=== PATIENT | female | born 1940 | race Caucasian/White ===

== ENCOUNTER 2020-09-03 13:07 | Inpatient (IN) ==
[2020-09-03] MEDS ORDERED: ALBUTEROL SULFATE 2.5 MG/0.5 ML VIAL.NEB IH ONE (13:17)
[2020-09-03] MEDS ORDERED: METHYLPREDNISOLONE SOD SUCC/PF 40 MG/ML VIAL IV ONE (13:18)
--- NOTE | 2020-09-03 13:27 | ERNOTE ---
Dyspnea - General Presenting Symptoms: shortness of breath Time Seen by Provider: 09/03/20 13:10 Source: patient Exam Limitations: no limitations - Immun/Allergies/Home Medications Immunizations: IMMUNIZATION HX History of Influenza Vaccine Yes Hx Pneumococcal Vaccination Yes Allergies/Adverse Reactions: Allergies cephalexin Adverse Reaction (Unknown, Verified 09/03/20 13:26) lorazepam [From Ativan] Adverse Reaction (Verified 09/03/20 13:26) makes her feel weird mirtazapine [From Remeron] Adverse Reaction (Verified 09/03/20 13:26) severe drowsiness Home Medications: HOME MEDICATIONS Aspirin [Aspirin Chewable] 81 mg PO DAILY 11/09/14 [Last Taken Unknown] Multivitamin [Multivitamins] 1 ea PO DAILY 11/24/17 [Last Taken Unknown] cholecalciferol (vitamin D3) 25 mcg (1,000 unit) tablet 1,000 unit PO DAILY #30 tab 01/14/18 [Last Taken Unknown] budesonide-formoterol HFA 160 mcg-4.5 mcg/actuation aerosol inhaler 2 puff IH BID 09/05/18 [Last Taken Unknown] arformoterol 15 mcg/2 mL solution for nebulization 2 ml IH BID 08/28/20 [Last Taken Unknown] levothyroxine 75 mcg tablet 75 mcg PO DAILY #30 tab 08/30/20 [Last Taken Unknown] Clopidogrel Bisulfate [Plavix] 75 mg PO DAILY 09/03/20 [Last Taken Unknown] Lisinopril [Zestril] 40 mg PO DAILY 09/03/20 [Last Taken Unknown] Metoprolol Succinate 100 mg PO DAILY 09/03/20 [Last Taken Unknown] PARoxetine HCL [Paxil] 10 mg PO DAILY 09/03/20 [Last Taken Unknown] amLODIPine BESYLATE [Norvasc] 5 mg PO DAILY 09/03/20 [Last Taken Unknown] levofloxacin 500 mg tablet 500 mg PO DAILY 5 Days #5 tab 09/03/20 [Last Taken Unknown] - History of Present Illness Narrative: Patient is coming to the ER for shortness of breath. She states that she has a history of COPD, uses 3 L of oxygen at night. Her symptoms got significantly worse from baseline last night. She states that it was shortly after she took an antibiotic that Dr. Otoole had prescribed for her for a UTI (first dose last night at 19:00) She denies any coughing, denies any fever. She tried her inhaler this morning without any significant relief. She has had her first COVID immunization last week. Date (Duration): 09/02/20 Treatment YARD HOSTLER: by patient, albuterol Initiating event: Denies: upper resp illness, out of meds Frequency of episodes: Reports: occassional episodes Modifying Factors - (Improves): Reports: oxygen Modifying Factors (Worsens): Reports: activity Associated Symptoms-Dyspnea: Denies: fever/chills, chest pain/discomfort, cough Prior Treatment: Reports: recently seen, currently on antibiotics Review of Systems - Review of Systems Constitutional: Present: malaise. Absent: fever ENT: Absent: nose congestion, sore throat Respiratory: Present: shortness of breath. Absent: cough Cardiology: Absent: chest pain Gastrointestinal/Abdominal: Absent: nausea, abdominal pain Genitourinary: Present: no symptoms reported Neurological: Absent: headache Medical History (Last Reviewed 09/03/20 @ 13:23 by Brenda Tarango MD) COPD (chronic obstructive pulmonary disease) Onset Date: Unknown Graves disease Onset Date: Unknown History of temporal arteritis Onset Date: ~2003 Hypertension Onset Date: Unknown Hypothyroidism (acquired) Onset Date: Unknown Leukemia Onset Date: ~2000 chronic lymphocytic Peripheral vascular disease Onset Date: Unknown History of kidney cancer Onset Date: ~2014 History of left breast cancer Onset Date: ~2009 left breast History of renal cell cancer Onset Date: ~2015 Tibial artery stenosis Onset Date: ~2015 Surgical History: Surgical History (Last Reviewed 09/03/20 @ 13:23 by Brenda Tarango MD) Cataract Onset Date: 11/22/07 09/27/2007 left Femoral-tibial bypass graft occlusion, right Onset Date: ~2015 bypass graft, femoral-posterior tibial, in-situ vein History of breast biopsy Onset Date: 08/18/17 left 08/18/2017, right History of colonoscopy Onset Date: 09/14/142012 Elle Contreras extremely tortuosity of sigmoid colon, diverticulosis left colon History of endarterectomy Onset Date: ~2016 iliofemoral endarterectomy rt lower extremity History of esophagogastroduodenoscopy Onset Date: 09/14/14 History of hysterectomy Onset Date: ~1983 abdominal History of nephroureterectomy Onset Date: ~2014 History of oophorectomy Onset Date: ~1983 History of vascular surgery Onset Date: ~2009 Dr Rosen-YARD HOSTLER of left superficial femoral artery and stenting of proximal left superficial femoral artery 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 Family History: Family History (Last Reviewed 09/03/20 @ 13:26 by Aparna Schultz, RN) Father CAD (coronary artery disease) Mother Cancer Social History: (Last Reviewed 09/03/20 @ 13:26 by Aparna Schultz RN) Social History: Marital status: / Service: No Tobacco: Smoking Status: Former smoker Alcohol: alcohol intake: current alcohol intake frequency: a few times a month Substance Use: substance use type: does not use Dietary Habits: caffeine: Yes Physical Exam - Physical Exam General Appearance: Present: wd/wn, alert, mild distress, anxious Eye Exam: Normal inspection: bilateral Ears, Nose, Throat: Present: normal pharynx, dry mucous membranes Respiratory: Present: respiratory distress, decreased breath sounds, expiration (prolonged), wheezing, other - patient speaks in three word sentences Cardiovascular/Chest: Present: no murmur, tachycardia, JVD Gastrointestinal/Abdominal: Present: nontender, nondistended, soft Extremity Exam: Present: no edema Neurological Exam: Present: alert, oriented, normal mood/affect Skin Exam: Present: normal color, warm/dry Progress - Results and Orders Patient's Lab Results:: I have reviewed the patient's lab results. - Vital Signs Patient's Vital Signs:: I have reviewed the patient's vital signs. - EKG EKG #1 EKG: NSR - sinustachycardia, nonspecific ST T wave changes, other - atrial enlargement EKG read: Interp. by me - X-Ray X-Ray #1 X-Ray: chest - hyperinflated lungs, no acute findings Interpretation: Reviewed by me - Progress/Reassessment Progress Note-Subjective: 09/03/20 14:46 patient a little calmer, improved air movement and less wheezing patient has elevated BNP, no history of CHF, will try low dose of lasix talked about possible admission, patient would prefer to go home 09/03/20 15:23 patient states that her breathing is better, has to urinate now (25minutes after lasix 20mg IV) patient makes it to bedside commode with minimal help 09/03/20 15:31 with the exertion of moving to the commode patient get very short of breath, RR up to 40's, O2 sat down to mid 80's 09/03/20 15:42 discussed with keyla Marroquin to admit for observation for COPD exacerbation switch to rocephin as urine culture is sensitive and better side effect profile for patient will also get COVId, LA and procalcitonin 09/03/20 16:40 patient has a fever now, will treat with tylenol cephalexin listed as allergy, patient states that it made her nauseated, no hives or shortness of breath, will start rocephin Departure Clinical Impression: COPD exacerbation, E. coli UTI (urinary tract infection) - Departure Disposition: Still a patient Condition: Stable
[2020-09-03 13:58] LABS: Hematocrit 36.3 % (37.0-47.0); Hemoglobin 11.6 gm/dL (12.5-16.0); Mean Cell Volume 93.3 fl (78-100); Mean Corpuscular Hemoglobin 29.8 pg (27-31); Mean Platelet Volume 9.7 fl (8-12.5); Platelet Count 186 K/mm3 (150-450); Red Blood Count 3.89 M/mm3 (4.2-5.4); White Blood Count 20.6 K/mm3 (4.0-10.5)
[2020-09-03 14:00] LABS: Total Cells Counted 100
[2020-09-03 14:17] LABS: Band 17 % (0-2.0); Lymphocyte 11 % (20-51); Monocyte 2 % (0-9); Neutrophil 70 % (42-75); Neutrophil # 14.4 K/mm3 (1.3-6.0)
[2020-09-03 14:18] LABS: ALT 20 U/L (19-67); AST 25 U/L (0-48); Albumin * 3.4 gm/dl (3.4-5.0); Alkaline Phosphatase * 84 U/L (50-170); Anion Gap 9.8 mmol/L (6.8-13.8); BNP * 13010 pg/mL (5-550); BUN/Creatinine Ratio 24.3 (9.0-21.6); Bilirubin, Total 0.6 mg/dL (0.0-1.1); Blood Urea Nitrogen 26 mg/dL (3-23); Ca. Corrected For Albumin 9.3 mg/dL (8.4-10.2); Calcium * 9.1 mg/dL (7.9-10.9); Chloride 98 mmol/L (97-106); Glucose * 111 mg/dL (70-110); Potassium 3.8 mmol/L (3.4-4.6); Sodium 134 mmol/L (132-142); Total Protein 7.4 gm/dL (6.2-8.2); Troponin I Less than 0.017 ng/mL (0.00-0.10)
[2020-09-03 14:19] LABS: Platelet Estimate Normal (NORMAL); RBC Morphology Normal (NORMAL)
[2020-09-03] MEDS ORDERED: FUROSEMIDE 10 MG/ML VIAL IV ONE (14:45)
[2020-09-03] MEDS ORDERED: cefTRIAXone SODIUM 1,000 MG/100 ML BAG IV ONE (16:40)
[2020-09-03] MEDS ORDERED: ACETAMINOPHEN 325 MG TABLET PO ONE (16:40)
--- NOTE | 2020-09-03 18:28 | HP ---
Chief Complaint - Chief Complaint Date of Service: 09/03/20 Time of Service: 16:30 Chief Complaint: shortness of breath History of Present Illness: Patient with PMHx of COPD requiring oxygen at night, HTN, hx of breast and renal cancer developed SOB last evening. She had just taken her 1st dose of levaquin for a UTI. Her SOB did not improve with her home oxygen or breathing treatments. She has not required hospitalization for COPD before. In the ED, her oxygen level was decreased to the 70s, RR in the 30s, HR in the low 100s. She had difficulty ambulating to the commode, becoming very dyspneic. BNP elevated to 13,000 without signs of fluid overload, WBC elevated to 20, procalcitonin elevated to 17. CXR was clear, troponin negative, normal lactate., negative COVID. She did not appear septic on exam, so she was not given a fluid bolus. She was given a dose of Rocephin for her UTI, 80 mg solumedrol, 20 mg IV lasix and a breathing treatment, and reported an improvement in her SOB for my admission exam. She is admitted for COPD exacerbation. 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 Peripheral vascular disease Onset Date: Unknown History of kidney cancer Onset Date: ~2014 History of left breast cancer Onset Date: ~2009 left breast History of renal cell cancer Onset Date: ~2015 Tibial artery stenosis Onset Date: ~2015 Surgical History: Surgical History (Last Reviewed 09/03/20 @ 17:26 by Filemon Loza RN) Cataract Onset Date: 11/22/07 09/27/2007 left Femoral-tibial bypass graft occlusion, right Onset Date: ~2015 bypass graft, femoral-posterior tibial, in-situ vein History of breast biopsy Onset Date: 08/18/17 left 08/18/2017, right 1979's History of colonoscopy Onset Date: 09/14/142012 Elle Contreras extremely tortuosity of sigmoid colon, diverticulosis left colon History of endarterectomy Onset Date: ~2016 iliofemoral endarterectomy rt lower extremity History of esophagogastroduodenoscopy Onset Date: 09/14/14 History of hysterectomy Onset Date: ~1983 abdominal History of nephroureterectomy Onset Date: ~2014 History of oophorectomy Onset Date: ~1983 History of vascular surgery Onset Date: ~2009 Dr Rosen-VIROLOGIST of left superficial femoral artery and stenting of proximal left superficial femoral artery 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 Family History: Family History (Last Reviewed 09/03/20 @ 17:26 by Filemon Loza RN) Father CAD (coronary artery disease) Mother Cancer Social History: (Last Reviewed 09/03/20 @ 17:26 by Filemon Loza RN) Social History: Marital status: / Service: No Tobacco: Smoking Status: Former smoker Alcohol: alcohol intake: current alcohol intake frequency: a few times a month Substance Use: substance use type: does not use Dietary Habits: caffeine: Yes Review Of Systems (GEN) - Review of Systems Generalized/Overall Review: Present: Weakness, Weight loss Respiratory: Present: Shortness of Breath Genitourinary: Present: Frequency Immunizations: IMMUNIZATION HX Immunizations Up to Date Yes History of Influenza Vaccine Yes Hx Pneumococcal Vaccination Yes Allergies/Adverse Reactions: Allergies Allergy/AdvReac Type Severity Reaction Status Date / Time cephalexin AdvReac Unknown Verified 09/03/20 17:26 lorazepam [From Ativan] AdvReac makes her Verified 09/03/20 17:26 feel weird mirtazapine [From Remeron] AdvReac severe Verified 09/03/20 17:26 drowsiness Home Medications: HOME MEDICATIONS Aspirin [Aspirin Chewable] 81 mg PO DAILY 11/09/14 [Last Taken Unknown] Multivitamin [Multivitamins] 1 ea PO DAILY 11/24/17 [Last Taken Unknown] cholecalciferol (vitamin D3) 25 mcg (1,000 unit) tablet 1,000 unit PO DAILY #30 tab 01/14/18 [Last Taken Unknown] budesonide-formoterol HFA 160 mcg-4.5 mcg/actuation aerosol inhaler 2 puff IH BID 09/05/18 [Last Taken Unknown] arformoterol 15 mcg/2 mL solution for nebulization 2 ml IH BID 08/28/20 [Last Taken Unknown] levothyroxine 75 mcg tablet 75 mcg PO DAILY #30 tab 08/30/20 [Last Taken Unknown] Clopidogrel Bisulfate [Plavix] 75 mg PO DAILY 09/03/20 [Last Taken Unknown] Lisinopril [Zestril] 40 mg PO DAILY 09/03/20 [Last Taken Unknown] Metoprolol Succinate 100 mg PO DAILY 09/03/20 [Last Taken Unknown] PARoxetine HCL [Paxil] 10 mg PO DAILY 09/03/20 [Last Taken Unknown] amLODIPine BESYLATE [Norvasc] 5 mg PO DAILY 09/03/20 [Last Taken Unknown] levofloxacin 500 mg tablet 500 mg PO DAILY 5 Days #5 tab 09/03/20 [Last Taken Unknown] Exam - Exam Vital Signs: Vital Signs - Last Taken Temp 36.9 C 09/03/20 18:14 Pulse 99 09/03/20 18:14 Resp 32 H 09/03/20 18:14 BP 148/70 09/03/20 18:14 Pulse Ox 100 09/03/20 18:14 Constitutional: Present: Alert, Cooperative, Mild distress, Thin and frail ENT Exam: Present: dry mucous membranes Respiratory: Present: lungs clear, accessory muscle use, No rales, No wheezing Cardiovascular/Chest: Present: tachycardia, other - no edema Abdomen: Present: soft, nontender Eye contact: Present: good eye contact Diagnostic Studies: Abnormal Lab Results 09/03/20 09/03/20 09/03/20 Range/Units 13:53 13:55 13:55 WBC 20.6 H (4.0-10.5) K/mm3 RBC 3.89 L (4.2-5.4) M/mm3 Hgb 11.6 L (12.5-16.0) gm/dL Hct 36.3 L (37.0-47.0) % RDW 15.0 H (11.5-14.0) % Band Neuts % (Manual) 17 H (0-2.0) % Lymphocytes % (Manual) 11 L (20-51) % Neutrophils # (Manual) 14.4 H (1.3-6.0) K/mm3 BUN 26 H (3-23) mg/dL Est GFR (Non-Af Amer) 52 L (60-130) mL/min BUN/Creatinine Ratio 24.3 H (9.0-21.6) Random Glucose 111 H (70-110) mg/dL B-Natriuretic Peptide 13946 H (5-550) pg/mL Procalcitonin 17.58 H (0.05-0.50) ng/mL Laboratory Results WBC 20.6 K/mm3 (4.0-10.5) H 09/03/20 13:55 RBC 3.89 M/mm3 (4.2-5.4) L 09/03/20 13:55 Hgb 11.6 gm/dL (12.5-16.0) L 09/03/20 13:55 Hct 36.3 % (37.0-47.0) L 09/03/20 13:55 MCV 93.3 fl (78-100) 09/03/20 13:55 MCH 29.8 pg (27-31) 09/03/20 13:55 MCHC 32.0 g/dl (32-36) 09/03/20 13:55 RDW 15.0 % (11.5-14.0) H 09/03/20 13:55 Plt Count 186 K/mm3 (150-450) 09/03/20 13:55 MPV 9.7 fl (8-12.5) 09/03/20 13:55 Neutrophils % (Manual) 70 % (42-75) 09/03/20 13:55 Band Neuts % (Manual) 17 % (0-2.0) H 09/03/20 13:55 Lymphocytes % (Manual) 11 % (20-51) L 09/03/20 13:55 Monocytes % (Manual) 2 % (0-9) 09/03/20 13:55 Neutrophils # (Manual) 14.4 K/mm3 (1.3-6.0) H 09/03/20 13:55 Lymphocytes # (Manual) 2.3 k/mm3 (1.5-3.5) 09/03/20 13:55 Monocytes # (Manual) 0.4 k/mm3 (0.0-1.0) 09/03/20 13:55 Toxic Vacuolation Trace 09/03/20 13:55 Platelet Estimate Normal (NORMAL) 09/03/20 13:55 RBC Morphology Normal (NORMAL) 09/03/20 13:55 Sodium 134 mmol/L (132-142) 09/03/20 13:55 Plasma Sodium 134 mmol/L (130-142) 09/03/20 13:55 Potassium 3.8 mmol/L (3.4-4.6) 09/03/20 13:55 Chloride 98 mmol/L (97-106) 09/03/20 13:55 Carbon Dioxide 30.0 mmol/L (24-32.6) 09/03/20 13:55 Anion Gap 9.8 mmol/L (6.8-13.8) 09/03/20 13:55 BUN 26 mg/dL (3-23) H 09/03/20 13:55 Creatinine 1.07 mg/dL (0.4-1.4) 09/03/20 13:55 Est GFR (Non-Af Amer) 52 mL/min (60-130) L 09/03/20 13:55 BUN/Creatinine Ratio 24.3 (9.0-21.6) H 09/03/20 13:55 Random Glucose 111 mg/dL (70-110) H 09/03/20 13:55 Lactic Acid, Venous 1.3 mmol/L (0.4-2.0) 09/03/20 13:53 Calcium 9.1 mg/dL (7.9-10.9) 09/03/20 13:55 Calcium Adj for Albumin 9.3 mg/dL (8.4-10.2) 09/03/20 13:55 Total Bilirubin 0.6 mg/dL (0.0-1.1) 09/03/20 13:55 AST 25 U/L (0-48) 09/03/20 13:55 ALT 20 U/L (19-67) 09/03/20 13:55 Alkaline Phosphatase 84 U/L (50-170) 09/03/20 13:55 Troponin I Less than 0.017 ng/mL (0.00-0.10) 09/03/20 13:55 B-Natriuretic Peptide 50192 pg/mL (5-550) H 09/03/20 13:55 Total Protein 7.4 gm/dL (6.2-8.2) 09/03/20 13:55 Albumin 3.4 gm/dl (3.4-5.0) 09/03/20 13:55 Procalcitonin 17.58 ng/mL (0.05-0.50) H 09/03/20 13:53 SARS-CoV-2 (PCR) Not detected (NotDetected) 09/03/20 15:45 Assessment/Plan - Narrative Narrative: She is improving with the interventions done in the ED - lasix, steroids, and Rocephin. The oxygen tubing was in place for thr nasal canula, but oxygen was not discontinued. She declines intubation. Will continue po steroids and transition to po cefuroxime for her UTI tomorrow. Continue home meds. Recheck labs in am. DC could be as soon as tomorrow. - Assessment/Plan (1) Respiratory distress, acute Problem: Acute (2) COPD exacerbation Problem: Acute (3) Dehydration Problem: Acute (4) Renal cancer Problem: Acute (5) Anemia Problem: Acute (6) Hypoxemia Problem: Acute
[2020-09-04] MEDS ORDERED: FOSFOMYCIN TROMETHAMINE 3 GM PACKET PO ONE (06:40)
[2020-09-04] MEDS ORDERED: FLUTICASONE PROPION/SALMETEROL 14 PUFF DISK.W.DEV IH PRN (06:48)
[2020-09-04 07:04] LABS: Hematocrit 31.6 % (37.0-47.0); Hemoglobin 10.1 gm/dL (12.5-16.0); Mean Cell Volume 92.7 fl (78-100); Mean Corpuscular Hemoglobin 29.6 pg (27-31); Mean Platelet Volume 9.9 fl (8-12.5); Platelet Count 191 K/mm3 (150-450); Red Blood Count 3.41 M/mm3 (4.2-5.4); Red Cell Distribution Width 15.1 % (11.5-14.0); White Blood Count 22.4 K/mm3 (4.0-10.5)
[2020-09-04 07:10] LABS: Total Cells Counted 100
[2020-09-04 07:21] LABS: Atypical (Reactive) Lymph 1 % (0-2); Band 10 % (0-2.0); Lymphocyte 11 % (20-51); Monocyte 3 % (0-9); Neutrophil 75 % (42-75); Neutrophil # 16.8 K/mm3 (1.3-6.0)
[2020-09-04 07:22] LABS: Platelet Estimate Normal (NORMAL); RBC Morphology Normal (NORMAL)
[2020-09-04] MEDS: LEVOTHYROXINE SODIUM 75 MCG TABLET PO SCH (07:37)
[2020-09-04] MEDS: ALBUTEROL SULFATE 2.5 MG/0.5 ML VIAL.NEB IH PRN ×2 (08:58→18:04)
[2020-09-04] MEDS: FORMOTEROL FUMARATE 20 MCG/2 ML VIAL IH SCH ×2 (08:58→18:04)
--- NOTE | 2020-09-04 09:08 | PN ---
Subjective - Date and Time Seen Date: 09/04/20 Time: 08:45 Subjective Narrative: She reports feeling better this morning. She is no longer having increased urinary frequency and is breathing easier. She was wheezing this morning, but had some coffee, and that helped loosen up some phlegm. She is wondering what it means to have COPD. She uses 2 L O2 at night, but not every night. Objective - Review of Systems Respiratory: Reports: Shortness of Breath Cardiac: Denies: Chest Pain, Edema Abdominal: Denies: Vomiting Genitourinary Symptoms: Denies: Frequency, Dysuria - Vitals Vitals: Last Vital Signs Temp 36.6 C 09/04/20 06:14 Pulse 81 09/04/20 08:58 Resp 28 H 09/04/20 08:58 BP 160/63 H 09/04/20 06:14 Pulse Ox 97 09/04/20 08:58 - Abnormal Lab Findings Abnormal Lab Findings: Abnormal Lab Results 09/03/20 09/03/20 09/03/20 Range/Units 13:53 13:55 13:55 WBC 20.6 H (4.0-10.5) K/mm3 RBC 3.89 L (4.2-5.4) M/mm3 Hgb 11.6 L (12.5-16.0) gm/dL Hct 36.3 L (37.0-47.0) % RDW 15.0 H (11.5-14.0) % Band Neuts % (Manual) 17 H (0-2.0) % Lymphocytes % (Manual) 11 L (20-51) % Neutrophils # (Manual) 14.4 H (1.3-6.0) K/mm3 BUN 26 H (3-23) mg/dL Est GFR (Non-Af Amer) 52 L (60-130) mL/min BUN/Creatinine Ratio 24.3 H (9.0-21.6) Random Glucose 111 H (70-110) mg/dL B-Natriuretic Peptide 08786 H (5-550) pg/mL Procalcitonin 17.58 H (0.05-0.50) ng/mL 09/04/20 Range/Units 06:40 WBC 22.4 H (4.0-10.5) K/mm3 RBC 3.41 L (4.2-5.4) M/mm3 Hgb 10.1 L (12.5-16.0) gm/dL Hct 31.6 L (37.0-47.0) % RDW 15.1 H (11.5-14.0) % Band Neuts % (Manual) 10 H (0-2.0) % Lymphocytes % (Manual) 11 L (20-51) % Neutrophils # (Manual) 16.8 H (1.3-6.0) K/mm3 BUN (3-23) mg/dL Est GFR (Non-Af Amer) (60-130) mL/min BUN/Creatinine Ratio (9.0-21.6) Random Glucose (70-110) mg/dL B-Natriuretic Peptide (5-550) pg/mL Procalcitonin (0.05-0.50) ng/mL - EKG/Xray Findings EKG: other - right atrial enlargement EKG read: Reviewed by me - Exam Constitutional: Present: Alert, No distress, Elderly, Thin and frail Respiratory: Present: no respiratory distress, no accessory muscle use, crackles - left sided, No wheezing Cardiovascular/Chest: Present: regular rate, rhythm Abdomen: Present: soft, nontender Extremity: Absent: lower extremity edema Eye contact: Present: cooperative, good eye contact Assessment/Plan Plan Narrative: Her respiratory status has improved since administration of 20 mg IV lasix and 80 mg IV solumedrol in the ED. Her BNP is significantly elevated, but she does not have signs of fluid overload on exam. With her COPD, there is a chance she may have pulmonary hypertension. She has a greater than 20 pack year smoking history. Will obtain echo. Her WBC increased from 20 to 22. She was given a dose of rocephin in the ED for her UTI. her urinary symptoms have improved, and she is breathing easier. She has an allergy to cephalexin. Will give a dose of fosfomycin to complete UTI treatment. She had an elevated HR, RR, and source of infection on admission, which tech nically meets sepsis criteria, but I do not believe she was septic. Her elevated HR and RR were due to her COPD exacerbation, and her UTI symptoms were only increased frequency without dysuria, so I do not feel like that was a systemic infection. She improved while in the ED, without a fluid bolus. She denies having any urine symptoms this morning. CXR was negative, she is not coughing, and her oxygen requirement is not increased from her baseline, so she does not have pneumonia. She received her COVID vaccine last week. She reports an improvement in symptoms. Would like to see her WBC improve prior to DC, which may be tomorrow. - Problems/Diagnosis (1) COPD exacerbation Problem: Acute (2) Respiratory distress, acute Problem: Resolved (3) Renal cancer Problem: Chronic (4) Anemia Problem: Chronic Narrative: Normocytic. Her baseline appears to be around 11.5, so she is at her baseline. (5) Stage III chronic kidney disease Problem: Chronic Narrative: Admission GFR of 52 is close to her baseline GFR in the mid 60's. (6) Dehydration Problem: Resolved (7) Weight loss, unintentional Problem: Acute Narrative: She has lost about 10 pounds since 2019. she has a history of breast and renal cancer, making this weight loss concerning. Her PCP recently ordered home health for gradual decline at home. Will discuss risks vs benefits of further cancer screenings.
[2020-09-04] MEDS: amLODIPine BESYLATE 5 MG TABLET PO SCH (09:30)
[2020-09-04] MEDS: ASPIRIN 81 MG TAB.CHEW PO SCH (09:30)
[2020-09-04] MEDS: LISINOPRIL 40 MG TABLET PO SCH (09:31)
[2020-09-04] MEDS: predniSONE 20 MG TABLET PO SCH (09:31)
[2020-09-04] MEDS: PARoxetine HCL 10 MG TABLET PO SCH (09:31)
[2020-09-04] MEDS: CLOPIDOGREL BISULFATE 75 MG TABLET PO SCH (09:31)
[2020-09-04] MEDS: METOPROLOL SUCCINATE 100 MG TABLET.SA PO SCH (09:31)
[2020-09-04] MEDS ORDERED: FUROSEMIDE 20 MG TABLET PO ONE (09:49)
[2020-09-05] MEDS: FORMOTEROL FUMARATE 20 MCG/2 ML VIAL IH SCH (06:17)
[2020-09-05] MEDS: ALBUTEROL SULFATE 2.5 MG/0.5 ML VIAL.NEB IH PRN (06:17)
[2020-09-05 06:29] LABS: Hematocrit 31.4 % (37.0-47.0); Hemoglobin 10.4 gm/dL (12.5-16.0); Mean Cell Volume 87.7 fl (78-100); Mean Corpuscular Hemoglobin 29.1 pg (27-31); Mean Corpuscular Hgb Conc 33.1 g/dl (32-36); Mean Platelet Volume 9.5 fl (8-12.5); Neutrophil # 12.6 K/mm3 (1.3-6.0); Neutrophil % 69.9 % (42-75.0); Platelet Count 179 K/mm3 (150-450); Red Blood Count 3.58 M/mm3 (4.2-5.4); Red Cell Distribution Width 14.6 % (11.5-14.0); White Blood Count 18.1 K/mm3 (4.0-10.5)
[2020-09-05] MEDS: LEVOTHYROXINE SODIUM 75 MCG TABLET PO SCH (07:28)
[2020-09-05] MEDS: PARoxetine HCL 10 MG TABLET PO SCH (09:10)
[2020-09-05] MEDS: ASPIRIN 81 MG TAB.CHEW PO SCH (09:11)
[2020-09-05] MEDS: amLODIPine BESYLATE 5 MG TABLET PO SCH (09:14)
[2020-09-05] MEDS: CLOPIDOGREL BISULFATE 75 MG TABLET PO SCH (09:16)
[2020-09-05] MEDS: predniSONE 20 MG TABLET PO SCH (09:16)
[2020-09-05] MEDS: LISINOPRIL 40 MG TABLET PO SCH (09:17)
[2020-09-05] MEDS: METOPROLOL SUCCINATE 100 MG TABLET.SA PO SCH (09:17)
--- NOTE | 2020-09-05 12:37 | DS ---
(1) COPD exacerbation Problem: Resolved (2) Respiratory distress, acute Problem: Resolved (3) Renal cancer Problem: Chronic (4) Anemia Problem: Chronic (5) Stage III chronic kidney disease Problem: Chronic (6) Dehydration Problem: Resolved (7) Weight loss, unintentional Problem: Acute Date of Discharge:: 09/05/20 Hospital Course: Patient with PMHx of COPD requiring oxygen at night, HTN, hx of breast and renal cancer developed SOB the night before admission. She had just taken her 1st dose of levaquin for a UTI. Her SOB did not improve with her home oxygen or breathing treatments. She had not required hospitalization for COPD before. In the ED, her oxygen level was decreased to the 70s, RR in the 30s, HR in the low 100s. She had difficulty ambulating to the commode, becoming very dyspneic. BNP elevated to 13,000 without signs of fluid overload, WBC elevated to 20, procalcitonin elevated to 17. CXR was clear, troponin negative, normal lactate, negative COVID. She did not appear septic on exam, so she was not given a fluid bolus. She was given a dose of Rocephin for her UTI, 80 mg solumedrol, 20 mg IV lasix and a breathing treatment, and reported an improvement in her SOB for my admission exam. She is admitted for COPD exacerbation. Her respiratory status has improved since administration of 20 mg IV lasix and 80 mg IV solumedrol in the ED. Her BNP is significantly elevated, but she does not have signs of fluid overload on exam. She has a greater than 20 pack year smoking history. Echo done this admission showed mild diastolic dysfunction, a small pericardial effusion, mild pulmonary hypertension, EF of 55-60%. Her WBC improved on the day of DC, and she felt comfortable going home. She was given a dose of fosfomycin for her UTI, and symptoms resolved. The only medication adjustment will be to add prn 20 mg lasix for her to use if she has increased SOB, and will give a few days of prednisone. She had an elevated HR, RR, and source of infection on admission, which technically meets sepsis criteria, but I do not believe she was septic. Her elevated HR and RR were due to her COPD exacerbation, and her UTI symptoms were only increased frequency without dysuria, so I do not feel like that was a systemic infection. She improved while in the ED, without a fluid bolus. CXR was negative, she is not coughing, and her oxygen requirement is not increased from her baseline, so she does not have pneumonia. She received her COVID vaccine last week. She reports having some weight loss, but she has days without an appetite. With her history of cancer, there is some concern for recurrence. Briefly discussed risks vs benefits of cancer screenings on the day of DC. Procedures Performed: none Results and Findings: Pending Mircobiology Results 09/03/20 17:17 Blood Blood Culture - Preliminary NO GROWTH 24 HOURS 09/03/20 13:55 Blood Blood Culture - Preliminary NO GROWTH 24 HOURS Lab Pending Results 09/03/20 13:53: Lactic Acid, Venous 1.3 09/03/20 13:53: Procalcitonin 17.58 H 09/03/20 13:55: WBC 20.6 H, RBC 3.89 L, Hgb 11.6 L, Hct 36.3 L, MCV 93.3, MCH 29.8, MCHC 32.0, RDW 15.0 H, Plt Count 186, MPV 9.7, Neutrophils % (Manual) 70, Band Neuts % (Manual) 17 H, Lymphocytes % (Manual) 11 L, Monocytes % (Manual) 2, Neutrophils # (Manual) 14.4 H, Lymphocytes # (Manual) 2.3, Monocytes # (Manual) 0.4, Toxic Vacuolation Trace, Platelet Estimate Normal, RBC Morphology Normal 09/03/20 13:55: Sodium 134, Plasma Sodium 134, Potassium 3.8, Chloride 98, Carbon Dioxide 30.0, Anion Gap 9.8, BUN 26 H, Creatinine 1.07, Est GFR (Non-Af Amer) 52 L, BUN/Creatinine Ratio 24.3 H, Random Glucose 111 H, Calcium 9.1, Calcium Adj for Albumin 9.3, Total Bilirubin 0.6, AST 25, ALT 20, Alkaline Phosphatase 84, Troponin I Less than 0.017, B-Natriuretic Peptide 46111 H, Total Protein 7.4, Albumin 3.4 09/03/20 15:45: SARS-CoV-2 (PCR) Not detected 09/04/20 06:40: WBC 22.4 H, RBC 3.41 L, Hgb 10.1 L, Hct 31.6 L, MCV 92.7, MCH 29.6, MCHC 32.0, RDW 15.1 H, Plt Count 191, MPV 9.9, Neutrophils % (Manual) 75, Band Neuts % (Manual) 10 H, Lymphocytes % (Manual) 11 L, Monocytes % (Manual) 3, Neutrophils # (Manual) 16.8 H, Lymphocytes # (Manual) 2.5, Monocytes # (Manual) 0.7, Atypic/Reactive Lymphs 1, Platelet Estimate Normal, RBC Morphology Normal 09/05/20 06:25: WBC 18.1 H, RBC 3.58 L, Hgb 10.4 L, Hct 31.4 L, MCV 87.7, MCH 29.1, MCHC 33.1, RDW 14.6 H, Plt Count 179, MPV 9.5, Immature Gran % (Auto) 0.40, Immature Gran # (Auto) 0.07 H, Neutrophils % 69.9, Lymphocytes % 24.4, Monocytes % 4.7, Eosinophils % 0.4, Basophils % 0.2, Nucleated RBC % 0.0, Neutrophils # 12.6 H, Lymphocytes # 4.41 H, Monocytes # 0.8, Eosinophils # 0.1, Absolute Basophils 0.0 Discharge Location: Home Disposition: Home Health Service Condition: Stable Discharge Activity: Activity as tolerated Discharge Diet: General/regular food Referrals: Reena Otoole MD [Primary Care Provider] - One Week Additional Patient Instructions (free text): Resume home health through [facility], call [place] nurse report at [phone] and fax H&P, discharge summary, orders to [phone]. Prescriptions (Any new or edited meds): Furosemide 20 mg PO DAILY PRN #30 tab PRN Reason: Shortness Of Breath Transmission Status: Pending to [place], [place] predniSONE [Prednisone] 20 mg PO DAILY #4 tab Transmission Status: Pending to [place], [place] Complete Home Medications List: Complete Home Medication List: Aspirin [Aspirin Chewable] 81 mg PO DAILY 11/09/14 budesonide-formoterol HFA 160 mcg-4.5 mcg/actuation aerosol inhaler 2 puff IH BID PRN 09/05/18 levothyroxine 75 mcg tablet 75 mcg PO DAILY #30 tab 08/30/20 Arformoterol Tartrate [Brovana] 15 mcg IH BID 09/03/20 Clopidogrel Bisulfate [Plavix] 75 mg PO DAILY 09/03/20 Lisinopril [Zestril] 40 mg PO DAILY 09/03/20 Metoprolol Succinate 100 mg PO DAILY 09/03/20 PARoxetine HCL [Paxil] 10 mg PO DAILY 09/03/20 amLODIPine BESYLATE [Norvasc] 5 mg PO DAILY 09/03/20 Furosemide 20 mg PO DAILY PRN #30 tab 09/05/20 predniSONE [Prednisone] 20 mg PO DAILY #4 tab 09/05/20
[2020-09-05 13:07] VITALS: BP 157/70
--- NOTE | 2020-09-06 09:22 | ECHO ---
This report is available in the EMR
== END 2020-09-05 13:38 | disposition home health service (06) | DRG 191 ==
LOC: ER 13:07 → MS 13:07
PROVIDERS: ADMIT Family Medicine; ATTEND Family Medicine
DX: E86.0 Dehydration; J44.1 Chronic obstructive pulmonary disease with (acute) exacerbation; B96.20 Unspecified Escherichia coli [E. coli] as the cause of diseases classified elsewhere; N39.0 Urinary tract infection, site not specified; Z85.3 Personal history of malignant neoplasm of breast; Z85.53 Personal history of malignant neoplasm of renal pelvis; Z99.81 Dependence on supplemental oxygen; Z68.1 Body mass index [BMI] 19.9 or less, adult; I12.9 Hypertensive chronic kidney disease with stage 1 through stage 4 chronic kidney disease, or unspecified chronic kidney disease; E46 Unspecified protein-calorie malnutrition; D53.9 Nutritional anemia, unspecified; R06.03 Acute respiratory distress; N18.30 Chronic kidney disease, stage 3 unspecified